=== PATIENT | male | born 1965 | race Two or more races ===

== ENCOUNTER 2023-08-17 06:40 | Day surgery (SDC) | payer OTHER | END 2023-08-17 11:05 | disposition home or self-care (01) | LOC: AMB-ENDOS 06:40 | PROVIDERS: ATTEND Colon & Rectal Surgery | DX: D12.3 Benign neoplasm of transverse colon (principal); K57.30 Diverticulosis of large intestine without perforation or abscess without bleeding; Z20.822 Contact with and (suspected) exposure to COVID-19; K64.8 Other hemorrhoids ==